=== PATIENT | female | born 1980 | race African-American/Black ===

== ENCOUNTER 2016-11-22 01:28 | Inpatient (IN) | payer OTHER ==
[2016-11-22] MEDS ORDERED: NACL 0.9% 1000 ML 1,000 ML IV ONE ×2 (02:14→06:50)
[2016-11-22 02:45] LABS: Basophils % (Auto) 0.3 % (0.0-1.8); Eosinophils % (Auto) 0.1 % (0.0-4.3); Hematocrit 34.6 % (30.3-42.9); Hemoglobin 11.8 gm/dl (10.1-14.3); Mean Corpuscular HGB Conc 34 % (30-34); Mean Corpuscular Hemoglobin 30 pg (28-32); Mean Corpuscular Volume 89 fl (79-97); Platelet Count 223 K/mm3 (140-440); Red Cell Distribution Width 13.3 % (13.2-15.2); White Blood Count 12.5 K/mm3 (4.5-11.0)
--- NOTE | 2016-11-22 03:03 | Emergency Department Report ---
HPI - General Chief Complaint: Vaginal Bleeding Time Seen by Provider: 11/22/16 02:13 - HPI HPI: This is a 36-year-old female presents to the emergency department with complaint of lower abdominal cramping and some vaginal bleeding that occurred starting about 3 hours ago all patient was at home. The patient believes she is about 19 weeks . She is with 2 live children and 3 previous miscarriages. The patient did not take anything for symptoms prior to presentation. She denies any nausea, vomiting, fever, dysuria, vaginal discharge. She sees a doctor Moisés Trivedi, an MEDICAL COLLECTIONS REPRESENTATIVE at a local clinic. She denies any other past medical history. No recent travel or sick contacts at home. ED Past Medical Hx - Past Medical History Hx Hypertension: No Hx Congestive Heart Failure: No Hx Diabetes: No Hx Deep Vein Thrombosis: No Hx Renal Disease: Yes (2011-dialysis x 3 mos after C/S) Hx Sickle Cell Disease: No Hx Seizures: No Hx Asthma: No Hx COPD: No Hx HIV: No Additional medical history: Low BP - Surgical History Additional Surgical History: , ruptures urethra and uterus and pt on dialysis from October-March 2012 - Social History Smoking Status: Never Smoker Substance Use Type: None ED Review of Systems ROS: Stated complaint: ABDOMINAL PAIN Other details as noted in HPI Comment: All other systems reviewed and negative Constitutional: denies: chills, fever Eyes: denies: eye pain, eye discharge, vision change ENT: denies: ear pain, throat pain Respiratory: denies: cough, shortness of breath, wheezing Cardiovascular: denies: chest pain, palpitations Gastrointestinal: abdominal pain. denies: nausea, vomiting Genitourinary: other (vaginal bleeding). denies: dysuria, discharge Musculoskeletal: denies: back pain, joint swelling, arthralgia Skin: denies: rash, lesions Neurological: denies: headache, weakness, paresthesias Physical Exam - Physical Exam Vital Signs: Vital Signs 11/22/16 11/22/16 02:00 02:24 Temperature 99.8 F H 99.8 F H Pulse Rate 100 H Respiratory 16 Rate Blood Pressure 99/37 O2 Sat by Pulse 97 Oximetry Physical Exam: GENERAL: The patient is well-developed well-nourished. HEENT: Normocephalic. Atraumatic. Extraocular motions are intact. Patient has moist mucous membranes. Pupils equal reactive to light bilaterally. NECK: Supple. Trachea is midline. CHEST/LUNGS: Clear to auscultation. There is no respiratory distress noted. HEART/CARDIOVASCULAR: Regular. There is mild tachycardia. There is no gallop rub or murmur. ABDOMEN: Abdomen is soft. Patient has tenderness palpation to the lower quadrants of the abdomen and the pelvis. No guarding rebound tenderness. Patient has normal bowel sounds. There is no abdominal distention. SKIN: Skin is warm and dry. NEURO: The patient is awake, alert, and oriented. The patient is cooperative. The patient has no focal neurologic deficits. The patient has normal speech. MUSCULOSKELETAL: There is no tenderness or deformity. There is no limitation range of motion. There is no evidence of acute injury. ED Course Vital Signs 11/22/16 11/22/16 02:00 02:24 Temperature 99.8 F H 99.8 F H Pulse Rate 100 H Respiratory 16 Rate Blood Pressure 99/37 O2 Sat by Pulse 97 Oximetry - Consultations Consultation #1: Spoke with the MEDICAL COLLECTIONS REPRESENTATIVE on-call, Dr. Jackson, who is going to take the patient to L &D and possibly the OR for intervention of the partial spontaneous miscarriage. 11/22/16 04:03 ED Medical Decision Making - Lab Data Result diagrams: 11/22/16 11:05 11/22/16 02:30 - Radiology Data Radiology results: report reviewed Transvaginal/ ultrasound shows a spontaneous in progress. Fetus is not viable. There is no cardiac activity. It is seen in the endocervical canal and vagina. CT of the abdomen and pelvis with IV contrast shows a fetus within the distal cervix and vagina. The uterus is enlarged, heterogenous density demonstrating prominent enhancement of the placenta in place consistent with recent . Prominent right parametrial vessels and right gonadal vein. Mild to moderate right hydronephrosis and hydroureter to the level of the enlarged uterus. - Medical Decision Making This is a 36-year-old female presents with concern for miscarriage but mostly for some recent lower abdominal discomfort and bleeding. There was some discussion through previous notes reports that the patient had been seen for possible spontaneous partial miscarriage. However patient was evaluated today with physical exam, labs, imaging. Patient's abdomen is tender to palpation to the lower quadrants but she does not appear to have a toxic or rigid abdomen on presentation. Patient's labs show a mild leukocytosis, some hyponatremia, hypokalemia. She has a strong beta hCG. Patient sent for an ultrasound that confirms a nonviable partial spontaneous miscarriage in the endocervical canal and vagina. I spoke with the MEDICAL COLLECTIONS REPRESENTATIVE on-call who agreed to take the patient to L&D with probable surgical intervention. When he examined the patient in the emergency department he has concern for a surgical abdomen unrelated to her obstetric complications. For this reason a CT of the abdomen and pelvis with IV contrast was done that did not show any other significant surgical emergency. There was some hydronephrosis and hydroureter on the right secondary to her enlarged uterus. Patient did go to labor and delivery and was taken to the OR for intervention by the MEDICAL COLLECTIONS REPRESENTATIVE. - Differential Diagnosis , miscarriage, fibroids, uterine abruption Critical Care Time: No Critical care attestation.: If time is entered above; I have spent that time in minutes in the direct care of this critically ill patient, excluding procedure time. ED Disposition Clinical Impression: Spontaneous , demise, Vaginal bleeding, Hypokalemia Abdominal pain Qualifiers: Abdominal location: lower abdomen, unspecified Qualified Code(s): R10.30 - Lower abdominal pain, unspecified Hypotension Qualifiers: Hypotension type: unspecified hypotension type Qualified Code(s): I95.9 - Hypotension, unspecified Disposition: OP ADMITTED IP TO THIS HOSP Is pt being admited?: Yes Condition: Fair
[2016-11-22 03:06] LABS: Anion Gap 18 mmol/L; Blood Urea Nitrogen 6 mg/dL (7-17); Calcium 8.2 mg/dL (8.4-10.2); Carbon Dioxide 18 mmol/L (22-30); Chloride 100.3 mmol/L (98-107); Glucose 110 mg/dL (65-100); Potassium 3.1 mmol/L (3.6-5.0); Sodium 133 mmol/L (137-145)
--- NOTE | 2016-11-22 03:43 | Ultrasound Report ---
FINAL REPORT PROCEDURE: US OB \T\gt; = 14 WEEKS FETUS TECHNIQUE: Real-time transabdominal sonography of the uterus, placenta, amniotic fluid, adnexa, and fetus was performed with image documentation. Measurements were obtained to determine age/size. M-mode Doppler was used to document heartbeat. CPT 29002 HISTORY: vaginal bleeding, miscarriage COMPARISON: No prior studies are available for comparison. FINDINGS: Gestational sac and pole are in the endocervical canal and vagina. There is no cardiac activity. Estimated gestational age is 16 weeks. IMPRESSION: Spontaneous progress. Fetus is not viable. There is no cardiac activity.
[2016-11-22] MEDS ORDERED: CYTOTEC PR ONE (06:02)
[2016-11-22] MEDS ORDERED: K-DUR PO ONE ×2 (06:48→07:37)
[2016-11-22] MEDS ORDERED: NACL ONE (06:55)
--- NOTE | 2016-11-22 07:16 | History and Physical Report ---
History of Present Illness Date of examination: 11/22/16 Date of admission: 11/22/16 06:03 Chief complaint: IUFD at 16 wks History of present illness: 36-year-old at ~ 16 weeks (via sono today) presents with IUFD, she has no care. Essential history patient with onset of vaginal bleeding last night, went to the emergency room where she was noted to have an IUFD at 16 weeks with fetus in the cervical canal. Blood pressure noted to be low but hemoglobin and hematocrit stable at ~ 12/35. Patient is a Welsh-speaker. Review of chart and history from physician specialist shows a prior history of 2 with uterine abruption during last delivery in 2011. Patient complains infant was admitted to NICU for some time and she suffered acute renal insufficiency requiring dialysis for 6 months. It appears patient also had a miscarriage in 2013 at ~ 16 weeks here at [facility] requiring D&C, was transfused with PRBC. On examining patient in the ER, she has an acute abdomen. 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 denies: smoking, alcohol abuse, prescription drug abuse, IV drug use - Obstetrical History Expected Date of Delivery: 05/09/17 Actual Gestation: 16 Week(s) 1 Day(s) : 6 Para: 2 Medications and Allergies Allergies Allergy/AdvReac Type Severity Reaction Status Date / Time No Known Allergies Allergy Verified 10/18/13 03:22 Active Meds: Active Medications Sodium Chloride (Nacl 0.9% 1000 Ml) 1,000 mls @ 999 mls/hr IV BOLUS ONE Stop: 11/22/16 07:50 Review of Systems Constitutional: no fever, no chills Cardiovascular: no chest pain Gastrointestinal: abdominal pain (Severe abd pain), no vomiting, no diarrhea Genitourinary: vaginal bleeding, no vaginal discharge - Vital Signs Vital signs: Vital Signs Temp Pulse Resp BP Pulse Ox 99.8 F H 100 H 16 99/37 97 11/22/16 02:00 11/22/16 02:00 11/22/16 02:00 11/22/16 02:00 11/22/16 02:00 Temp Pulse Resp BP Pulse Ox 99.8 F H 87 21 90/37 97 11/22/16 02:24 11/22/16 06:16 11/22/16 06:16 11/22/16 06:16 11/22/16 06:16 - Physical Exam Cardiovascular: Regular rate, Normal S1, Normal S2 Lungs: Positive: Clear to auscultation, Normal air movement Abdomen: Positive: normal appearance, tenderness, guarding, other. Negative: soft, distention (Severe CVA tenderness) Uterus: Positive: tender Results Result Diagrams: 11/23/16 08:59 11/22/16 02:30 All other labs normal. Assessment and Plan A: 36-year-old at 16 weeks with IUFD - Issues: -Welsh speaker -Acute ABD -Hx of Uterine Abruption -Low BP -Prior hx of D&C in 2013 for retained placenta P: -ED physician to obtain CT abdomen -Disposition after results - Patient Problems (1) 16 weeks gestation of Current Visit: Yes Status: Acute (2) demise Current Visit: Yes Status: Acute (3) Abdominal pain Current Visit: Yes Status: Acute Qualifiers: Abdominal location: lower abdomen, unspecified Qualified Code(s): R10.30 - Lower abdominal pain, unspecified
[2016-11-22] MEDS ORDERED: NACL 0.9% 500 ML 500 ML IV ONE (07:24)
[2016-11-22] MEDS ORDERED: NACL 0.9% 1000 ML 1,000 ML ONE (07:36)
[2016-11-22] MEDS ORDERED: MORPHINE ONE (07:47)
[2016-11-22] MEDS ORDERED: MORPHINE IV ONE (07:49)
--- NOTE | 2016-11-22 08:03 | Cat Scan Report ---
FINAL REPORT PROCEDURE: CT ABDOMEN PELVIS W CON TECHNIQUE: Computerized axial tomography of the abdomen and pelvis was performed after the IV injection of iodinated nonionic contrast. HISTORY: Abd pain COMPARISON: Ultrasound OB less than 14 weeks 11/22/2016 FINDINGS: Visualized lower thorax: Bibasilar subsegmental atelectasis worst posteriorly. Liver: Normal size and attenuation. Spleen: Normal size and attenuation. Gallbladder and biliary system: Normal. Pancreas: Normal. Adrenals: Normal. Kidneys: Mild to moderate right hydronephrosis and hydroureter to the level of an enlarged uterus. Unremarkable left kidney. GI tract: Limited in evaluation without oral contrast. No bowel obstruction. The appendix is not definitely seen. Lymph nodes and mesentery: Normal. Vasculature: No abdominal aortic aneurysm. Prominent right parametrial vessels and right gonadal vein. Bladder: Normal. Reproductive organs: Prominent enhancing uterus. Fetus within the distal cervix and vagina. Peritoneum: No free fluid. Musculoskeletal structures: No significant abnormality. Other: None. IMPRESSION: Fetus within the distal cervix and vagina. The uterus is enlarged, heterogeneous in density demonstrating prominent enhancement with the placenta in place consistent with recent . Prominent right parametrial vessels and right gonadal vein. Mild to moderate right hydronephrosis and hydroureter to the level of the enlarged uterus.
[2016-11-22] MEDS ORDERED: PITOCin/NS 30 UNIT/500ML 30,000 MILLIUNITS/500 ML BAG IV ONE (08:48)
[2016-11-22] MEDS: LACTATED RINGERS 1,000 ML IV SCH ×4 (09:15→23:08)
--- NOTE | 2016-11-22 10:37 | Event Note ---
Date: 11/22/16 CT abd positive for R hydro ureter and Hydronehrosis which might be responsible for her pain. Plan is urology consult after delivery. Will start Pit once pt signs consent forms. 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
[2016-11-22 11:17] LABS: Hematocrit 31.1 % (30.3-42.9); Hemoglobin 10.6 gm/dl (10.1-14.3)
[2016-11-22] MEDS ORDERED: PITOCin 30 UNIT in NACL 0.9% 500 ML 497 ML IV ONE (11:29)
[2016-11-22] MEDS ORDERED: PITOCin/NS 20 UNIT/1000ML DRIP 20,000 MILLIUNITS/1,000 ML BAG IV ONE (15:52)
[2016-11-22] MEDS ORDERED: ePHEDrine SULFATE ONE (15:56)
[2016-11-22] MEDS ORDERED: NARCAN 2 MG/2 ML IV PRN (16:34)
[2016-11-22] MEDS ORDERED: BENADRYL IV PRN (16:34)
[2016-11-22] MEDS ORDERED: ePHEDrine SULFATE IM PRN (16:34)
--- NOTE | 2016-11-22 16:34 | Anesthesia Consultation ---
Anesthesia Consult and Med Hx Date of service: 11/22/16 - Airway Anesthetic Teeth Evaluation: Good ROM Head & Neck: Adequate Mental/Hyoid Distance: Adequate Intubation Access Assessment: Probably Good - Pulmonary Exam CTA: Yes - Cardiac Exam Cardiac Exam: RRR - Pre-Operative Health Status ASA Pre-Surgery Classification: ASA2, Emergency Proposed Anesthetic Plan: Epidural, Spinal - Pre-Anesthesia Comment Pre-Anesthesia Comments: IUFD @ 19 weeks - Pulmonary Hx Asthma: No COPD: No Hx Pneumonia: No - Cardiovascular System Hx Hypertension: No - Central Nervous System Hx Seizures: No Hx Psychiatric Problems: No - Endocrine Hx Renal Disease: No Hx End Stage Renal Disease: No Hx Hypothyroidism: No Hx Hyperthyroidism: No - Hematic Hx Anemia: No Hx Sickle Cell Disease: No - Other Systems Hx Alcohol Use: No - Additional Comments Anesthesia Medical History Comments: Chronic hypotension. Systolic BP in 90's pre-procedure. Patient given 25 mg of IM ephedeine pre-procedure.
[2016-11-22] MEDS ORDERED: CYTOTEC ONE (16:43)
--- NOTE | 2016-11-22 16:58 | Event Note ---
Date: 11/22/16 Epidural placed and delivered over intact perineum. Placenta still attached. Will start Miso 200 mcg every 4 hrs x 3 doses minimal bleeding noted
[2016-11-22] MEDS ORDERED: fentaNYL-BUPIV 2 MCG/ML-0.125% 200 MCG/100 ML BAG EPIDURAL SCH (17:00)
[2016-11-22] MEDS: CYTOTEC VG SCH (21:29)
[2016-11-23] MEDS ORDERED: CYTOTEC VG ONE (02:00)
[2016-11-23] MEDS ORDERED: WATER FOR IRRIG STERILE IR ONE (02:30)
[2016-11-23] MEDS ORDERED: VERSED IV ONE (02:43)
[2016-11-23] MEDS: CYTOTEC VG SCH (02:50)
[2016-11-23] MEDS ORDERED: XYLOCAINE MPF 2% ONE (02:52)
[2016-11-23] MEDS: CLEOCIN 600 MG/50 mL 600 MG/50 ML BAG IV SCH ×2 (03:00→12:30)
[2016-11-23] MEDS ORDERED: SILVER NITRATE TP ONE (03:00)
[2016-11-23] MEDS: METHERGINE IM PRN ×2 (03:06→09:08)
[2016-11-23] MEDS ORDERED: NACL 0.9% 1000 ML 1,000 ML ONE (03:33)
--- NOTE | 2016-11-23 03:35 | Procedure Note ---
OB Delivery Note - Delivery Date of Delivery: 11/23/16 Surgeon: ANTHONY MENDENHALL Estimated blood loss: <100cc - Vaginal Delivery presentation: unknown Intrapartum events: no care, labor-<37 weeks (IUFD at 16 weeks) , foul smelling fluid Delivery induction: misoprostol Delivery monitor: none Route of delivery: Delivery placenta: adherent Episiotomy: none Delivery laceration: none Delivery comments: Late note from earlier delivery, see event note - Infant A at 1 minute: 0 at 5 minutes: 0 Gender: Ambiguous
--- NOTE | 2016-11-23 03:42 | Operative Report ---
Operative Report Operative Report: DATE: 11/23/2016 PREOPERATIVE DIAGNOSIS: Retained placenta POSTOP DIAGNOSIS: Same NAME OF PROCEDURE: Suction D&C SURGEON: ANTHONY MENDENHALL MD MANAGER MISSION: None ANESTHESIA: Epidural EBL: 900 mL PATHOLOGY SPECIMEN: Placenta URINE OUTPUT: 100 mL prior to procedure FINDINGS: Open OS with active bleeding, uterus measures ~ 15 cm DESCRIPTION OF PROCEDURE: Patient taken to the operating room where she was prepped and draped in sterile fashion placed in dorsolithotomy position. A speculum was placed in the vagina and single-tooth was used to grab the anterior lip of the uterus. Uterus was then sounded to 15 cm. A size 12 suction curet was then advanced into the patient's uterus gently and in a rotary manner the uterus was cleared of all products of conception including placental tissue, then a size 10 suction curet was used on contraction of the uterus. Using a sharp curet, all 4 quadrants were sampled with no remnant tissue noted. All instruments were then withdrawn to the patient's vagina, patient received 800 g of Cytotec MS and 0.2 mg of methergine. She tolerated the procedure well and instrument counts were correct 2 she is transferred to PACU in stable condition thank you
[2016-11-23] MEDS ORDERED: PHENERGAN PO PRN (03:44)
[2016-11-23] MEDS ORDERED: TYLENOL PO PRN (03:44)
[2016-11-23] MEDS ORDERED: MILK OF MAGNESIA PO PRN (03:44)
[2016-11-23] MEDS ORDERED: DULCOLAX PR PRN (03:44)
[2016-11-23] MEDS ORDERED: TUCKS PAD TP PRN (03:44)
[2016-11-23] MEDS ORDERED: DERMOPLAST TP PRN (03:44)
[2016-11-23] MEDS ORDERED: ZOFRAN IV PRN (03:44)
[2016-11-23] MEDS ORDERED: LANSINOH TP PRN (03:44)
[2016-11-23] MEDS ORDERED: PHENERGAN PR PRN (03:44)
[2016-11-23] MEDS ORDERED: BENADRYL PO PRN (03:44)
[2016-11-23] MEDS ORDERED: ePHEDrine SULFATE ONE (03:51)
--- NOTE | 2016-11-23 03:58 | Anesthesia Day of Surgery ---
Anesthesia Day of Surgery - Day of Surgery Patient Examined: Yes Patient H&P Reviewed: Yes Patient is NPO: Yes (FSP)
[2016-11-23] MEDS ORDERED: DILAUDID IV PRN (03:59)
--- NOTE | 2016-11-23 03:59 | Post Anesthesia Evaluation ---
- Post Anesthesia Evaluation Patient Participated: Yes Airway Patent: Yes Stable Respiratory Function: Yes Temp > 96.8F: Yes Pain Manageable: Yes Adequeate Hydration: Yes Anesthesia Complications: No Block Receding Appropriately: Yes Other Comments: Will check platelet count prior to removing epidural catheter
[2016-11-23] MEDS ORDERED: MOTRIN PO SCH (04:00)
[2016-11-23] MEDS ORDERED: SENOKOT S PO SCH (04:00)
[2016-11-23] MEDS ORDERED: SODIUM CHLORIDE FLUSH SYRINGE 10 ML IV PRN (04:00)
[2016-11-23] MEDS ORDERED: PITOCin 20 UNIT in NACL 0.9% 1000 ML 998 ML IV SCH (04:00)
--- NOTE | 2016-11-23 08:35 | Consultation ---
History of Present Illness - Reason for Consult Consult date: 11/23/16 - History of Present Illness 36-year-old at ~ 16 weeks (via sono today) presents with IUFD, she has no care. Essential history patient with onset of vaginal bleeding last night, went to the emergency room where she was noted to have an IUFD at 16 weeks with fetus in the cervical canal. Blood pressure noted to be low but hemoglobin and hematocrit stable at ~ 12/35. Patient is a Ukrainian-speaker. 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 Patient complains was admitted to NICU for some time and she suffered acute renal insufficiency requiring dialysis for 6 months. It appears patient also had a miscarriage in 2013 at ~ 16 weeks here at [facility] requiring D&C. On examining patient in the ER, she has an acute abdomen CTAP (11-22-16) mild/mod rt hydronephrosis to level of enlarged uterus no back pain or hx of kdiney stones A/P Mary D of (normal) discussed with pt via translation service (nurse García in the room) ok for discharge from gu standpoint repeat CTAP or renal us in 6 weeks Past History Social history: , full code. denies: smoking, alcohol abuse, prescription drug abuse, IV drug use Medications and Allergies Allergies Allergy/AdvReac Type Severity Reaction Status Date / Time No Known Allergies Allergy Verified 10/18/13 03:22 Active Meds: Active Medications Acetaminophen (Tylenol) 650 mg PO Q4H PRN PRN Reason: Pain MILD(1-3)/Fever >100.5/VILLARREAL Benzocaine/Menthol (Dermoplast) 1 spray TP PRN PRN PRN Reason: Episiotomy Pain Bisacodyl (Dulcolax) 10 mg OK BID PRN PRN Reason: Constipation Diphenhydramine HCl (Benadryl) 25 mg PO Q6H PRN PRN Reason: Itching Docusate Sodium (Colace) 100 mg PO BID ROBBIN Ferrous Sulfate (Feosol) 325 mg PO BID ROBBIN Oxytocin 30 unit/ Sodium (Chloride) 500 mls @ 1 mls/hr IV TITR ONE; 1 MILLIUNITS/MIN PRN Reason: Protocol Stop: 12/13/16 07:28 Last Titration: 11/22/16 14:18 Dose: 20 milliunits/min, 19.99 mls/hr Clindamycin HCl (Cleocin 600 Mg/50 Ml) 600 mg in 50 mls @ 100 mls/hr IV Q8H ROBBIN PRN Reason: Protocol Last Admin: 11/23/16 03:00 Dose: 100 mls/hr Gentamicin Sulfate 350 mg/ (Sodium Chloride) 108.75 mls @ 108.75 mls/hr IV DAILY ROBBIN PRN Reason: Protocol Stop: 11/24/16 10:59 Ampicillin Sodium 500 mg/ (Sodium Chloride) 50 mls @ 200 mls/hr IV Q6H [facility] Stop: 11/25/16 01:59 Oxytocin 20 unit/ Sodium (Chloride) 1,000 mls @ 250 mls/hr IV DIRECT [facility] Ibuprofen (Motrin) 600 mg PO Q6HR [facility] Magnesium Hydroxide (Milk Of Magnesia) 30 ml PO HS PRN PRN Reason: Constipation Methylergonovine Maleate (Methergine) 0.2 mg IM Q4H PRN PRN Reason: Uterine Bleeding Last Admin: 11/23/16 03:06 Dose: 0.2 mg Multi-Ingredient Ointment (Lansinoh) 1 applic TP PRN PRN PRN Reason: Sore Nipples Multivitamins/Iron/Calcium ( Vitamin) 1 each PO QDAY [facility] Ondansetron HCl (Zofran) 4 mg IV Q8H PRN PRN Reason: Nausea And Vomiting Promethazine HCl (Phenergan) 25 mg OK Q6H PRN PRN Reason: Nausea And Vomiting Promethazine HCl (Phenergan) 25 mg PO Q6H PRN PRN Reason: Nausea And Vomiting Senna/Docusate Sodium (Senokot S) 2 tab PO Q12HR [facility] Sodium Chloride (Sodium Chloride Flush Syringe 10 Ml) 10 ml IV PRN PRN PRN Reason: LINE FLUSH Witch Darling/Glycerin (Tucks Pad) 1 each TP PRN PRN PRN Reason: Hemorrhoid/cleansing/soothing Exam - Constitutional Vitals: Temp Pulse Resp BP Pulse Ox 98.5 F 86 18 98/45 100 11/23/16 08:15 11/23/16 08:15 11/23/16 08:15 11/23/16 08:15 11/23/16 04:30 Results - Labs CBC & Chem 7: 11/23/16 08:59 11/22/16 02:30
[2016-11-23 09:16] LABS: Basophils % (Auto) 0.2 % (0.0-1.8); Eosinophils % (Auto) 0.3 % (0.0-4.3); Hematocrit 31.5 % (30.3-42.9); Hemoglobin 10.7 gm/dl (10.1-14.3); Mean Corpuscular HGB Conc 34 % (30-34); Mean Corpuscular Hemoglobin 29 pg (28-32); Mean Corpuscular Volume 87 fl (79-97); Platelet Count 171 K/mm3 (140-440); Red Blood Count 3.64 M/mm3 (3.65-5.03); Red Cell Distribution Width 15.8 % (13.2-15.2); White Blood Count 10.6 K/mm3 (4.5-11.0)
--- NOTE | 2016-11-23 09:26 | Progress Note ---
Assessment and Plan PPD#1/POD# 0: s/p IUFD at 16 wks with retained placenta -stable this AM -s/p 2 units PRBC Issues: -[place] speaker only -Acute ABD (resolved this AM) -CT showing R Hydroureter -Hx of Uterine Abruption -Low BP -s/p D&C in 2013 for retained placenta w/ PRBC transfusion P: -Urology notes reviewed, thx -Continue present care - Patient Problems (1) 16 weeks gestation of Current Visit: Yes Status: Acute (2) demise Current Visit: Yes Status: Acute (3) Abdominal pain Current Visit: Yes Status: Acute Qualifiers: Abdominal location: lower abdomen, unspecified Qualified Code(s): R10.30 - Lower abdominal pain, unspecified Subjective - Subjective Date of service: 11/23/16 Principal diagnosis: PPD#1/POD#0 Interval history: Patient was seen this morning, doing well. Abdomen is soft without tenderness, pad is essentially dry with only mild blood staining Patient reports: appetite normal, pain well controlled, no nauseated [place]: Objective - Vital Signs Latest vital signs: Vital Signs Temp Pulse Pulse Pulse Resp BP BP 11/23/16 08:15 98.5 F 86 18 98/45 11/23/16 06:49 98.6 F 90 20 101/47 11/23/16 06:05 98.3 F 98 H 20 98/46 11/23/16 05:35 98.4 F 95 H 20 94/44 11/23/16 05:20 98.5 F 95 H 20 99/41 11/23/16 05:15 98.4 F 94 H 20 95/47 11/23/16 04:30 98.6 F 97 H 18 118/37 11/23/16 04:15 82 18 98/41 11/23/16 04:05 98.3 F 79 20 98/44 11/23/16 03:55 98.2 F 79 18 83/34 11/23/16 03:49 98.8 F 77 18 77/20 11/23/16 02:10 96 H 95/50 11/23/16 02:00 99.2 F 11/23/16 01:10 93 H 90/50 11/23/16 00:11 86 98/47 11/23/16 00:00 98.7 F 11/22/16 23:10 82 100/53 04/02 22:09 84 94/53 04/0217 22:07 98.4 F 81 18 91/52 04/0217 21:59 81 91/52 04/10/09 21:49 82 94/55 04/02 21:39 84 95/51 04/17 21:29 81 94/55 04/0217 21:19 76 88/52 04/02 21:09 80 86/50 04/0217 20:59 88 86/47 04/02 20:49 84 88/50 04/10/09 20:40 83 86/48 04/17 20:37 97.9 F 16 11/22/16 20:30 92 H 73/51 11/22/16 20:20 86 84/49 0402 20:09 86 91/52 04 19:59 86 91/52 04/17 19:49 88 93/54 04 19:39 88 91/53 04 19:29 94 H 95/53 11/22/16 19:19 97 H 91/54 0402 19:09 91 H 93/52 04/0217 18:59 87 90/51 040217 18:49 88 93/51 0417 18:39 90 91/52 0217 18:29 94 H 93/50 0217 18:19 100 H 92/50 02 18:09 92 H 94/53 04/0217 17:59 97 H 92/53 04/0217 17:49 101 H 93/52 040217 17:39 100 H 93/52 04/0217 17:29 90 93/51 04/0217 17:20 100 H 100/54 04/02/17 17:10 97.9 F 18 96/51 04/0217 17:09 94 H 101/53 04/0217 16:59 103 H 95/50 02 16:50 101 H 96/51 04/02/17 16:39 92 H 93/55 04 16:38 97 H 0402 16:33 101 H 0402 16:32 94 H 92/53 11/22/16 16:29 93 H 88/53 11/22/16 16:28 97 H 11/22/16 16:23 97 H 11/22/16 16:19 94 H 92/54 11/22/16 16:18 100 H 11/22/16 16:17 88 92/54 11/22/16 16:15 93 H 93/51 11/22/16 16:13 90 93/46 11/22/16 16:11 94 H 91/54 11/22/16 16:09 101 H 96/53 11/22/16 16:08 95 H 11/22/16 16:07 86 91/54 11/22/16 16:05 89 90/52 11/22/16 16:03 83 94/55 11/22/16 15:58 83 11/22/16 15:53 76 11/22/16 15:48 74 11/22/16 15:45 91 H 11/22/16 15:43 85 11/22/16 15:39 80 11/22/16 15:38 77 11/22/16 15:33 83 11/22/16 15:28 80 11/22/16 15:23 80 11/22/16 15:18 75 11/22/16 15:14 76 11/22/16 15:08 82 11/22/16 15:04 78 11/22/16 14:58 79 11/22/16 14:53 79 11/22/16 14:52 82 20 89/54 11/22/16 14:48 78 11/22/16 14:44 84 11/22/16 14:39 79 11/22/16 14:33 80 11/22/16 14:28 82 11/22/16 14:23 76 11/22/16 14:18 82 11/22/16 14:13 80 11/22/16 14:08 86 11/22/16 14:04 79 11/22/16 14:03 81 89/54 11/22/16 13:58 79 11/22/16 13:53 79 11/22/16 13:48 95 H 11/22/16 13:43 81 11/22/16 13:38 77 11/22/16 13:33 85 11/22/16 13:29 84 11/22/16 13:23 84 11/22/16 13:18 74 11/22/16 13:16 98.2 F 79 18 88/53 11/22/16 13:14 75 88/53 11/22/16 13:13 77 11/22/16 13:08 77 11/22/16 13:04 86 11/22/16 12:59 80 11/22/16 12:53 77 11/22/16 12:48 80 11/22/16 12:44 80 11/22/16 12:39 87 11/22/16 12:34 79 11/22/16 12:29 83 11/22/16 12:24 79 11/22/16 12:19 80 11/22/16 12:18 83 11/22/16 12:14 85 11/22/16 12:12 77 11/22/16 12:09 79 11/22/16 12:04 77 11/22/16 11:59 82 11/22/16 11:54 80 11/22/16 11:49 79 11/22/16 11:44 81 11/22/16 11:39 79 11/22/16 11:33 81 11/22/16 11:29 80 11/22/16 11:24 82 11/22/16 11:19 84 11/22/16 11:14 78 11/22/16 11:09 80 11/22/16 11:04 78 11/22/16 10:58 81 11/22/16 10:54 82 11/22/16 10:49 78 11/22/16 10:43 81 11/22/16 10:39 83 11/22/16 10:34 77 11/22/16 10:29 79 11/22/16 10:28 88 11/22/16 10:24 79 11/22/16 10:19 83 11/22/16 10:18 88 11/22/16 10:13 89 11/22/16 10:11 90 11/22/16 10:09 89 11/22/16 10:06 89 11/22/16 10:04 89 11/22/16 09:59 83 11/22/16 09:56 76 11/22/16 09:54 75 11/22/16 09:49 84 11/22/16 09:44 85 11/22/16 09:39 85 11/22/16 09:33 83 11/22/16 09:29 89 11/22/16 09:24 84 Pulse Ox 11/23/16 08:15 11/23/16 06:49 11/23/16 06:05 11/23/16 05:35 11/23/16 05:20 11/23/16 05:15 11/23/16 04:30 100 11/23/16 04:15 98 11/23/16 04:05 98 11/23/16 03:55 100 11/23/16 03:49 100 11/23/16 02:10 11/23/16 02:00 11/23/16 01:10 11/23/16 00:11 11/23/16 00:00 11/22/16 23:10 11/22/16 22:09 11/22/16 22:07 11/22/16 21:59 11/22/16 21:49 11/22/16 21:39 11/22/16 21:29 11/22/16 21:19 11/22/16 21:09 11/22/16 20:59 11/22/16 20:49 11/22/16 20:40 11/22/16 20:37 11/22/16 20:30 11/22/16 20:20 11/22/16 20:09 11/22/16 19:59 11/22/16 19:49 11/22/16 19:39 11/22/16 19:29 11/22/16 19:19 11/22/16 19:09 11/22/16 18:59 11/22/16 18:49 11/22/16 18:39 11/22/16 18:29 11/22/16 18:19 11/22/16 18:09 11/22/16 17:59 11/22/16 17:49 11/22/16 17:39 11/22/16 17:29 11/22/16 17:20 11/22/16 17:10 11/22/16 17:09 11/22/16 16:59 11/22/16 16:50 11/22/16 16:39 11/22/16 16:38 98 11/22/16 16:33 99 11/22/16 16:32 11/22/16 16:29 11/22/16 16:28 100 11/22/16 16:23 97 11/22/16 16:19 11/22/16 16:18 97 11/22/16 16:17 11/22/16 16:15 11/22/16 16:13 99 11/22/16 16:11 11/22/16 16:09 11/22/16 16:08 99 11/22/16 16:07 11/22/16 16:05 11/22/16 16:03 98 11/22/16 15:58 99 11/22/16 15:53 98 11/22/16 15:48 99 11/22/16 15:45 93 11/22/16 15:43 97 11/22/16 15:39 94 11/22/16 15:38 96 11/22/16 15:33 97 11/22/16 15:28 98 11/22/16 15:23 98 11/22/16 15:18 97 11/22/16 15:14 98 11/22/16 15:08 97 11/22/16 15:04 97 11/22/16 14:58 98 11/22/16 14:53 97 11/22/16 14:52 97 11/22/16 14:48 98 11/22/16 14:44 98 11/22/16 14:39 98 11/22/16 14:33 98 11/22/16 14:28 98 11/22/16 14:23 98 11/22/16 14:18 98 11/22/16 14:13 99 11/22/16 14:08 97 11/22/16 14:04 99 11/22/16 14:03 11/22/16 13:58 98 11/22/16 13:53 98 11/22/16 13:48 97 11/22/16 13:43 97 11/22/16 13:38 96 11/22/16 13:33 97 11/22/16 13:29 97 11/22/16 13:23 97 11/22/16 13:18 97 11/22/16 13:16 97 11/22/16 13:14 11/22/16 13:13 97 11/22/16 13:08 97 11/22/16 13:04 98 11/22/16 12:59 97 11/22/16 12:53 98 11/22/16 12:48 97 11/22/16 12:44 96 11/22/16 12:39 96 11/22/16 12:34 96 11/22/16 12:29 97 11/22/16 12:24 97 11/22/16 12:19 95 11/22/16 12:18 94 11/22/16 12:14 96 11/22/16 12:12 94 11/22/16 12:09 96 11/22/16 12:04 97 11/22/16 11:59 96 11/22/16 11:54 97 11/22/16 11:49 98 11/22/16 11:44 97 11/22/16 11:39 98 11/22/16 11:33 97 11/22/16 11:29 97 11/22/16 11:24 97 11/22/16 11:19 98 11/22/16 11:14 96 11/22/16 11:09 96 11/22/16 11:04 96 11/22/16 10:58 96 11/22/16 10:54 96 11/22/16 10:49 96 11/22/16 10:43 96 11/22/16 10:39 96 11/22/16 10:34 97 11/22/16 10:29 98 11/22/16 10:28 93 11/22/16 10:24 97 11/22/16 10:19 96 11/22/16 10:18 94 11/22/16 10:13 96 11/22/16 10:11 94 11/22/16 10:09 94 11/22/16 10:06 94 11/22/16 10:04 95 11/22/16 09:59 94 11/22/16 09:56 94 11/22/16 09:54 95 11/22/16 09:49 94 11/22/16 09:44 95 11/22/16 09:39 94 11/22/16 09:33 94 11/22/16 09:29 97 11/22/16 09:24 96 Intake and Output 11/22/16 11/23/16 11/23/16 22:59 06:59 14:59 Intake Total 1999 1900 250 Output Total 1400 1500 1000 Balance 600 400 -750 Intake: IV 2000 1650 250 Lactated Ringers 1,000 ml 2000 1000 @ 125 mls/hr IV DIRECT ROBBIN Rx#:[id number] PITOCin/NS 30 UNIT/500ML 125 30,000 milliunits In 500 ml As IV .STK-MED ONE Rx# :[id number] Right Antecubital 125 Blood Product 250 Leukoreduced Red Blood 250 Cells Unit [id number] Output: Urine 1400 1500 1000 Indwelling Catheter 1000 Uretheral (Rodriguez) 1250 Void 1400 Other: Total, Output Amount 800 1000 - Exam Abdomen: Present: soft. Absent: distention, tenderness, guarding, rigidity - Labs Labs: Abnormal lab results 11/23/16 Range/Units 08:59 RBC 3.64 L (3.65-5.03) M/mm3 RDW 15.8 H (13.2-15.2) % Lymph % (Auto) 12.8 L (13.4-35.0) % Seg Neutrophils % 81.3 H (40.0-70.0) % Seg Neutrophils # 8.6 H (1.8-7.7) K/mm3
[2016-11-23] MEDS ORDERED: NACL 0.9% IV SCH (10:00)
[2016-11-23] MEDS ORDERED: PRENATAL VITAMIN PO SCH (10:00)
[2016-11-23] MEDS ORDERED: GARAMYCIN IV SCH (10:00)
[2016-11-23] MEDS ORDERED: LACTATED RINGERS 1,000 ML IV SCH (10:00)
[2016-11-23] MEDS ORDERED: FEOSOL PO SCH (10:00)
[2016-11-23] MEDS ORDERED: COLACE PO SCH (10:00)
[2016-11-23] MEDS: POLYCILLIN 500 MG in NACL 0.9% 50 ML IV SCH ×2 (10:58→18:51)
[2016-11-23 16:39] LABS: Hematocrit 30.9 % (30.3-42.9); Hemoglobin 10.5 gm/dl (10.1-14.3)
--- NOTE | 2016-11-23 20:14 | Event Note ---
Date: 11/23/16 Called and informed patient desires discharge home. Has been stable on the floor with no vaginal bleeding. Ambulating without difficulty has adequate bowel and bladder function. No dizziness shortness of breath or chest pain, H& H has been stable. Plan is to discharge home at this time
--- NOTE | 2016-11-23 20:20 | Discharge Summary ---
Providers - Providers Date of Admission: 11/22/16 06:03 Date of discharge: 11/23/16 Attending physician: ANTHONY MENDENHALL 11/22/16 10:37 Consult to Physician [CONS] Routine Consulting Provider: AMINA DE Reason For Exam: R hydro ureter and [facility] Place consult to:: KENISHA Notified:: YES Phone number called:: [phone] Was contact made?: Yes If yes, spoke with:: CALL ABDIRASHID/[phone] Time called:: 10:00 Primary care physician: DIRECTOR [facility] Hospitalization Reason for admission: vaginal bleeding, IUFD (at ~ 16 weeks) Delivery: Procedure: other (Suction D&C of retained placenta) Other procedures: curettage complications: retained placenta, pelvic infection, transfusion Discharge diagnosis: other (Retained Placenta and PPH requiring PRBC, Right Hydroureter and Nephrosis), intrapartum demise (16 weeks IUFD) Hospital course: 36-year-old at ~ 16 weeks (via sono today) presents with IUFD, she has no care. Essential history patient with onset of vaginal bleeding last night, went to the emergency room where she was noted to have an IUFD at 16 weeks with fetus in the cervical canal. Blood pressure noted to be low but hemoglobin and hematocrit stable at ~ 12/35. Patient is a Welsh-speaker. Review of chart and history from spanish medical interpreter shows a prior history of 2 with uterine abruption during last delivery in 2011. Patient complains infant was admitted to NICU for some time and she suffered acute renal insufficiency requiring dialysis for 6 months. It appears patient also had a miscarriage in 2013 at ~ 16 weeks here at [facility] requiring D&C, was transfused with PRBC. On examining patient in the ER, she has an acute abdomen. Have asked ED physician to order a CT abdomen prior to transfer to L&D CT abdomen showed right hydroureter and hydronephrosis She was admitted to the floor and started on Misoprostol with subsequent delivery of 16 week IUFD. She had foul-smelling vaginal discharge with abd pain so triple antibiotics was started. She had retained placenta with heavy bleeding noted. He was taken to or for suction D&C was performed Admitted to the floor in stable condition. Post-op course has been unremarkable Note she has a history of low blood pressures, seen by cardiology last visit in 2014 and cleared She was seen by urology this visit with recommendation for outpatient follow-up Condition at discharge: Good Disposition: DISCHARGED TO HOME OR SELFCARE - Discharge Diagnoses (1) 16 weeks gestation of Status: Acute (2) demise Status: Acute (3) Abdominal pain Status: Acute Qualifiers: Abdominal location: lower abdomen, unspecified Qualified Code(s): R10.30 - Lower abdominal pain, unspecified (4) Retained placenta with hemorrhage, condition Status: Acute (5) Retained placenta, delivered, current hospitalization Status: Acute (6) Chorioamnionitis in second trimester Status: Acute Qualifiers: Fetus number: F (7) PPH ( hemorrhage) Status: Acute Qualifiers: hemorrhage type: P Plan - Provider Discharge Summary Activity: no sex for 6 weeks, no heavy lifting 4 weeks, no strenuous exercise Diet: routine Additional instructions: [] Smoking cessation referral if applicable(refer to patient education folder for contact #) [] Refer to [facility] Booklet Call your doctor immediately for: * Fever > 100.5 * Heavy vaginal bleeding ( >1 pad per hour) * Severe persistent headache * Shortness of breath * Reddened, hot, painful area to leg or breast * Drainage or odor from incision. * Keep incision clean and dry at all times and follow doctor's instructions regarding bathing/showering - Follow up plan Follow up: ADE CHOUDHURY MD [Primary Care Provider] - 3-5 Days ENRIQUE CARD MD [Staff Physician] - 6 Weeks
[2016-11-23 20:59] VITALS: BP 100/52
--- NOTE | 2016-11-23 21:21 | Consultation ---
REASON FOR CONSULTATION: Right hydronephrosis. REFERRING PHYSICIAN: Bird Garcia MD HISTORY OF PRESENT ILLNESS: This patient is a 36-year-old female, 16 weeks' gestational age. Had no care, presented to the Emergency Room with vaginal bleeding. The patient has had a miscarriage in the past and apparently unfortunately had a miscarriage this admission. She has had previous C-sections in the past. History is taken per chart review due to the patient is Haitian speaking as well as in combination with translation service. PAST MEDICAL HISTORY: The patient does not have renal failure; however, it is noted that either she had or her family had history of renal failure. ALLERGIES: She has no known drug allergies. MEDICATIONS: She is on no medications. PHYSICAL EXAMINATION: GENERAL: She is alert and oriented. VITAL SIGNS: Temperature 99.8, respiration is 18, pulse 90, BP 99/37. BACK: No CVA tenderness. ABDOMEN: Soft. LABORATORY DATA: BUN and creatinine of 6 and 0.4 respectively. Hemoglobin and hematocrit of 10 and 31 respectively, white count 10,000, platelets 171,000. CT of abdomen and pelvis revealed an enlarged uterus, which is normal due to recent right hydronephrosis, mild to moderate going down to the uterus. The patient denies any history of stones or back pain. ASSESSMENT AND PLAN: Right hydronephrosis, . No intervention. The patient is asymptomatic, okay for discharge, would recommend a repeat ultrasound or CT in 6 weeks. JOB# [id number] [facility]
== END 2016-11-23 21:05 | disposition home or self-care (01) | DRG 767 ==
LOC: ED 01:28 → LD 06:03 → OB 11-23 05:10
PROVIDERS: ADMIT Obstetrics & Gynecology Gynecology; ATTEND Obstetrics & Gynecology Gynecology
PROC: 10D17ZZ Extraction of Products of Conception, Retained, Via Natural or Artificial Opening (ICD-10-PCS; principal; 2016-11-23)
PROC: 10E0XZZ Delivery of Products of Conception, External Approach (ICD-10-PCS; 2016-11-23)
PROC: 30233N1 Transfusion of Nonautologous Red Blood Cells into Peripheral Vein, Percutaneous Approach (ICD-10-PCS; 2016-11-23)
PROC: 10D17ZZ Extraction of Products of Conception, Retained, Via Natural or Artificial Opening (ICD-10-PCS; 2016-11-23)
PROC: 00HU33Z Insertion of Infusion Device into Spinal Canal, Percutaneous Approach (ICD-10-PCS; 2016-11-23)
PROC: 3E0R3CZ (ICD-10-PCS; 2016-11-23)
DX: O72.0 Third-stage hemorrhage (principal); O41.1220 Chorioamnionitis, second trimester, not applicable or unspecified; O36.4XX0 Maternal care for intrauterine death, not applicable or unspecified; N13.30 Unspecified hydronephrosis; O26.832 Pregnancy related renal disease, second trimester; O16.2 Unspecified maternal hypertension, second trimester; N28.9 Disorder of kidney and ureter, unspecified; E87.6 Hypokalemia; O26.892 Other specified pregnancy related conditions, second trimester; Z3A.16 16 weeks gestation of pregnancy; Z37.1 Single stillbirth
CPT/HCPCS: 36415; 74177; 76805; 80048; 84702; 85014; 85018; 85025; 86850; 86900; 86901; 86920; 87040; 88305; 96361; 96374; J0290; J1580; J2210; J2250; J2270; J2590; J7030; J7040; J7120; P9016; Q9967